=== PATIENT | male | born 1955 | race Caucasian/White ===

== ENCOUNTER 2017-08-25 07:32 | Inpatient (IN) | payer BC ==
[~2017-08-25 07:32] MED LIST: ACETAMINOPHEN 1,000 MG/100 ML BTL IV ONE; CEFAZOLIN 2 Gram 2 GM/50 ML BAG IVPB ONE; FAMOTIDINE 20MG TABLET PO ONE; MECLIZINE 25 MG TABLET PO ONE; METOCLOPRAMIDE 10 MG TABLET PO ONE
[2017-08-25] MEDS ORDERED: SENNOSIDES/DOCUSATE SODIUM UD CAPSULE PO PRN (11:45)
[2017-08-25] MEDS ORDERED: ONDANSETRON HCL IV 4 MG/2 ML VIAL IVP PRN (11:45)
[2017-08-25] MEDS ORDERED: HYDROMORPHONE HCL 1 MG/ML SYRINGE IM PRN (11:45)
[2017-08-25] MEDS ORDERED: TRAMADOL HCL 50 MG TABLET PO PRN ×2 (11:45)
[2017-08-25] MEDS ORDERED: OXYCODONE HCL 5 MG TABLET PO PRN (11:45)
[2017-08-25] MEDS ORDERED: AL HYDROX/MAG HYDROX 30ML UD PO PRN (11:45)
[2017-08-25] MEDS ORDERED: ZOLPIDEM TARTRATE 5 MG TABLET PO PRN (11:45)
[2017-08-25] MEDS ORDERED: METOCLOPRAMIDE HCL 10 MG/2 ML VIAL IVP PRN (11:45)
[2017-08-25] MEDS ORDERED: HYDROMORPHONE HCL 2 MG/ML VIAL IM PRN (11:45)
[2017-08-25] MEDS ORDERED: MAGNESIUM HYDROXIDE 30 ML UDC PO PRN (11:45)
[2017-08-25] MEDS ORDERED: DIPHENHYDRAMINE HCL 25 MG CAPSULE PO PRN (11:45)
[2017-08-25] MEDS ORDERED: HYDROMORPHONE HCL 1 MG/ML SYRINGE IVP PRN (11:45)
[2017-08-25] MEDS ORDERED: BUPIVACAINE LIPOSOME 266MG/20ML VIAL IV ONE (12:31)
[2017-08-25] MEDS ORDERED: TRANEXAMIC ACID 1,000 MG/10 ML ML IV ONE (12:31)
[2017-08-25] MEDS ORDERED: TRANEXAMIC ACID 1,000 MG in 0.9 % SODIUM CHLORIDE 100ML 100 ML IVPB ONE (13:00)
[2017-08-25] MEDS: RINGERS SOLUTION,LACTATED 1,000 ML IV SCH (13:23)
[2017-08-25] MEDS ORDERED: LIDOCAINE 2% MDV (20MG/ML) 20ML VIAL IV ONE (14:00)
[2017-08-25] MEDS ORDERED: DIPHENHYDRAMINE HCL IV 50 MG/ML VIAL IVP ONE (14:00)
[2017-08-25] MEDS ORDERED: MIDAZOLAM HCL 2MG/2ML VIAL IV ONE (14:00)
[2017-08-25] MEDS ORDERED: HYDROMORPHONE HCL 2 MG/ML VIAL IV ONE (14:00)
[2017-08-25] MEDS ORDERED: ONDANSETRON HCL IV 4 MG/2 ML VIAL IVP ONE (14:00)
[2017-08-25] MEDS ORDERED: FENTANYL PF 100MCG/2ML VIAL IV ONE (14:00)
[2017-08-25] MEDS ORDERED: PROPOFOL 10 MG/ML VIAL IV ONE (14:00)
--- NOTE | 2017-08-25 15:20 | Operative Note ---
DATE OF SURGERY: 08/25/2017 SURGEON: Mnia Hopson DO REFERRING PROVIDER: CORY Gutierrez PREOPERATIVE DIAGNOSIS: Primary osteoarthritis of the left knee. POSTOPERATIVE DIAGNOSIS: Primary osteoarthritis of the left knee. OPERATIVE PROCEDURE: Left total knee arthroplasty. DESCRIPTION: This 61-year-old male was taken to the operating room and placed in the supine position on the operating room table. A spinal anesthetic was administered by the Department of Anesthesia. Left lower extremity was then elevated, prepped with Hibiclens, and draped in the usual sterile fashion. It was exsanguinated, and the tourniquet inflated to 300 mmHg. All scrubbed personnel wore personal isolation suits. An anterior longitudinal and midline incision was made, followed by medial parapatellar arthrotomy incision. An intercondylar drill hole was made for the intramedullary alignment isela, and a 9 mm 6 degree valgus cut was made in the distal femur, and the wafers of bone were removed. Sizing jig was affixed, and a size 67 was seen to be the appropriate size. The 4-in-1 cutting block was then pinned in 3 degrees of external rotation, and the appropriate cuts were made, and wafers of bone were removed. We then directed our attention to the proximal tibia. An extramedullary alignment guide was used to cut the proximal tibia referencing a 10 mm cut off the lateral tibial plateau, and the appropriate cut was made. Once the cutting block had been stabilized in the appropriate position, a 3 degree posterior slope cut was made. Remnants of the menisci were removed. The patient did not really have any significant osteophytes posteriorly. The tibia was sized to a size 75. Stem punch was used. The trial reduction was accomplished, and an 11 mm bearing was seen to be the appropriate size. The knee was stable throughout the range of motion. The patella was cut and restored to anatomic height with a 34 x 7.8 mm patella, and that also was found to be stable. All trial components were then removed. Exparel was injected into the posterior medial and lateral corners of the joint, and the wound copiously irrigated, and all bony surfaces were dried. All components were cemented into place and excess cement removed after the insertion of each component. Initially, the tibial base plate was cemented, followed by the insertion of the tibial bearing, femoral component, and finally the patella. Once the cement had hardened, the knee was again taken through range of motion and found to be stable. The remainder of the Exparel was injected into the joint capsule and periosteum of the proximal tibia and distal femur. A drain was placed through a separate stab incision. The arthrotomy incision was closed with #2 Vicryl, the subcutaneous tissue closed with O Vicryl, the skin was stapled, and a polar care was applied. The patient was taken to the recovery room in satisfactory condition. GROSS PATHOLOGY: This patient demonstrated severe osteoarthritis. Tricompartmental disease was present. Full-thickness articular cartilage loss noted in both the posterior aspect of the medial and lateral femoral condyles with grade 2 and 3 changes noted in both the medial and lateral tibial plateaus. Final components inserted were a [employer] Vanguard size 67.5 cruciate-retaining femur, a 75 tibia base plate, 11 mm anterior stabilized E1 bearing, and a 34 x 7.8 mm patella was used. CC: CORY Gutierrez
[2017-08-25] MEDS: OXYCODONE HCL 5 MG TABLET PO PRN ×2 (16:10→22:10)
[2017-08-25] MEDS: ACETAMINOPHEN 1,000 MG/100 ML BTL IV SCH ×2 (17:27→23:01)
[2017-08-25] MEDS: FONDAPARINUX 2.5 MG/0.5 ML SYR SQ SCH (17:27)
[2017-08-25] MEDS: CEFAZOLIN 2 Gram 2 GM/50 ML BAG IVPB SCH (17:29)
--- NOTE | 2017-08-25 19:17 | Rehab Evaluation ---
Patient Information - Patient Information Diagnosis: OA L knee s/p L TKA Ordered Treatment: PT Evaluate and Treat Status: Initial Evaluation Surgery: Yes (L TKA) Date of Surgery: 08/25/17 History: Detail (Pt states both knees are bad, but L was worse. He anticipates having the right knee done next year.) Past Medical/Surgical Hx: PAST MEDICAL/SURGICAL HISTORY Past Surgical History cholecystectomy PMH - Respiratory Hx Respiratory Disorders Yes Hx Bronchitis Yes: 3 yrs ago Hx Pneumonia Yes Hx Sleep Apnea Yes Hx of CPAP Yes Hx of SOB Yes: with humidity Comment: had fever /chills last Tuesday-24 hrs duration PMH - Cardiovascular Hx Cardiovascular Disorders Yes Hx Edema Yes: slight in ankles-on HCTZ Hx Hypertension Yes Exercise Tolerance Good PMH - Neuro Hx Neurological Disorders Yes Hx Neuropathy Yes: sometimes in fingers Comment: has carpal tunnel syndrome PMH - GI Hx Gastrointestinal Disorders No PMH - Hx Genitourinary Disorders No PMH - Endocrine Hx Endocrine Disorders No PMH - Musculoskeletal Hx Musculoskeletal Disorders Yes Hx Arthritis Yes PMH - Psych Hx Psychiatric Problems No PMH - Hematology/Oncology Hx Hematology/Oncology No Disorders Premorbid Status: Detail (Pt works at [employer], 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 He was having progressively increasing pain and difficulty walking.) Social History: Detail (Pt lives in a single story home with his , with accessible bathroom and walk-in shower. He has three steps to enter his home with a single handrail. He is expecting to return to work in October.) Precautions: [place], Fall - Time With Patient Total Time Spent With Patient (Min): 45 Treatment Procedures: Detail (PT Evaluation) Subjective Information - Subjective Information Per Patient (Pt was reclined in bed upon arrival, awake, alert; visiting with company. He was cooperative for therapy and denied pain at rest, but quickly developed pain with moving L LE.) Objective Data - Pain Pain Present: Yes Pain Intensity: 4 Pain Scale Used: Numeric (1 - 10) - Mental Status Patient Orientation: Oriented x3 - Visual Perception Appears within normal limits for therapeutic activities - ROM Not within normal limits (CPM is set at 0-60 degrees and patient is tolerating it well. L hip and ankle are WNL as are R hip/knee/ankle.) - Strength/Tone Not within normal limits (3/5 strength in L hip and ankle, 3-/5 in L knee. R LE muscle groups are 5/5.) - Coordination Appears within normal limits for therapeutic activities - Bed Mobility Needs Assist (CGA for L LE in/out of bed and in/out of CPM and for scooting up in bed.) - Transfers Needs Assist (CGA for sit/stand transfer to 2 wheeled walker.) - Balance Balance Sitting: Good Balance Standing: Good (With 2 wheeled walker.) - Sensation Intact Therapy Assessment - Therapy Assessment Detail (Pt exhibits ROM, strength, and mobility impairments consistent with his post-surgical condition. He is a good candidate for physical therapy.) Patient Education - Patient Education Teaching Topic: Disease Process, Equipment Use, Exercise/Activity Response: Return Demonstration, Reinforcement Needed, Verbalize Understanding Teaching Method: Discussion, Demonstration Teaching Recipient: Patient Barriers To Learning: None Problem List - Problem List Physical Therapy Problem List: Detail (1. Requires assist for bed mobility and transfers. 2. Difficulty walking. 3. Impaired ROM and strength in L knee/LE.) Goals - Goals Physical Therapy Goals: 1. Pt will be independent w/bed mobility; 2. Pt will safely and independently perform sit/stand and stand/pivot transfers; 3. Pt will safely ambulate household distances and steps w/2 wheeled walker w/ supervision; 4. Pt will be independent with a basic home exercise program for ROM and muscle activation. Prognosis - Prognosis Good Plan - Plan Physical Therapy Plan: Pt will be seen twice tomorrow to advance bed mobility, transfers, and gait and to reinforce home exercise program.
[2017-08-26] MEDS: CEFAZOLIN 2 Gram 2 GM/50 ML BAG IVPB SCH ×2 (00:33→08:40)
[2017-08-26] MEDS: ACETAMINOPHEN 1,000 MG/100 ML BTL IV SCH (04:04)
[2017-08-26] MEDS: OXYCODONE HCL 5 MG TABLET PO PRN ×2 (04:22→10:14)
[2017-08-26] MEDS: RINGERS SOLUTION,LACTATED 1,000 ML IV SCH (04:30)
[2017-08-26] MEDS ORDERED: ENALAPRIL 10 MG PO SCH (10:00)
[2017-08-26] MEDS ORDERED: PATIENT OWN MED: ATENOLOL 100 MG PO SCH (10:00)
[2017-08-26] MEDS ORDERED: HCTZ PO SCH (10:00)
[2017-08-26] MEDS ORDERED: PATIENT OWN MED: POTASSIUM 20 MEQ PO SCH (10:00)
[2017-08-26] MEDS ORDERED: TRIAMTERENE PO SCH (10:00)
[2017-08-26] MEDS ORDERED: PATIENT OWN MED: AMLODIPINE 10 MG PO SCH (10:00)
--- NOTE | 2017-08-26 10:24 | Rehab Evaluation ---
Patient Information - Patient Information Diagnosis: OA L knee s/p L TKA Ordered Treatment: OT Evaluate and Treat Status: Initial Evaluation Surgery: Yes (L TKA) Date of Surgery: 08/25/17 History: Detail (Pt states both knees are bad, but L was worse. He anticipates having the right knee done next year.) Past Medical/Surgical Hx: PAST MEDICAL/SURGICAL HISTORY Past Surgical History cholecystectomy PMH - Respiratory Hx Respiratory Disorders Yes Hx Bronchitis Yes: 3 yrs ago Hx Pneumonia Yes Hx Sleep Apnea Yes Hx of CPAP Yes Hx of SOB Yes: with humidity Comment: had fever /chills last Tuesday-24 hrs duration PMH - Cardiovascular Hx Cardiovascular Disorders Yes Hx Edema Yes: slight in ankles-on HCTZ Hx Hypertension Yes Exercise Tolerance Good PMH - Neuro Hx Neurological Disorders Yes Hx Neuropathy Yes: sometimes in fingers Comment: has carpal tunnel syndrome PMH - GI Hx Gastrointestinal Disorders No PMH - Hx Genitourinary Disorders No PMH - Endocrine Hx Endocrine Disorders No PMH - Musculoskeletal Hx Musculoskeletal Disorders Yes Hx Arthritis Yes PMH - Psych Hx Psychiatric Problems No PMH - Hematology/Oncology Hx Hematology/Oncology No Disorders Premorbid Status: Detail (Pt works at [employer], 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 He was having progressively increasing pain and difficulty walking. Pt was independent with all ADLs [employer].) Social History: Detail (Pt lives in a single story home with his , with accessible bathroom and walk-in shower. He has three steps to enter his home with a single handrail. He is expecting to return to work in October. will be away during the day.) Precautions: [place], Fall - Time With Patient Total Time Spent With Patient (Min): 20 Treatment Procedures: Detail (OT eval LOW) Subjective Information - Subjective Information Per Patient (Pt wanting to go home as soon as possible as long as medical staff feels he is able to.) Objective Data - Pain Pain Present: Yes Pain Intensity: 8 (L knee) Pain Scale Used: Numeric (1 - 10) - Mental Status Patient Orientation: Oriented x3 - Visual Perception Appears within normal limits for therapeutic activities - ROM Within normal limits (BUE's) - Strength/Tone Within normal limits (BUE's) - Bed Mobility Needs Assist (CGA for L knee off bed) - Transfers Independent (sit<>stand t/f) - Balance Balance Sitting: Good - Sensation Intact - Gait Detail (Amb w/ 2WW from bed to BR for toileting independently) - ADL's/IADL's Detail (Pt was instructed on and demo'd understanding of modified drsg technique. Donned pants and t-shirt independently. Pt plans to wear slip on shoes at home. Discussed wrapping technique for L knee to prevent water saturation during showering. Pt plans to sponge bath for first several days. He does have a tub bench available.) Therapy Assessment - Therapy Assessment Detail (Pt safe and independent with UB and LB drsg.) Problem List - Problem List Physical Therapy Problem List: Detail (1. Requires assist for bed mobility and transfers. 2. Difficulty walking. 3. Impaired ROM and strength in L knee/LE.) Goals - Goals Physical Therapy Goals: 1. Pt will be independent w/bed mobility; 2. Pt will safely and independently perform sit/stand and stand/pivot transfers; 3. Pt will safely ambulate household distances and steps w/2 wheeled walker w/ supervision; 4. Pt will be independent with a basic home exercise program for ROM and muscle activation. Prognosis - Prognosis Good Plan - Plan Physical Therapy Plan: Pt will be seen twice tomorrow to advance bed mobility, transfers, and gait and to reinforce home exercise program. Occupational Therapy Plan: Pt safe and independent with UB and LB drsg. No further inpatient OT needed at this time.
[2017-08-26] MEDS ORDERED: HYDROCODONE/APAP 7.5/325MG TABLET PO PRN ×2 (11:45)
[2017-08-26] MEDS ORDERED: ACETAMINOPHEN 325 MG TAB PO PRN (11:45)
[2017-08-26] MEDS ORDERED: OXYCODONE/APAP 7.5MG/325MG TABLET PO PRN ×2 (11:45)
--- NOTE | 2017-08-26 14:05 | Physical Therapy Tx Note ---
Physical Therapy Tx Note - Treatment Note Tolerated: Good Total Time Spent With Patient: 45 Physical Therapy Tx Note: Detail (Pt in bed upon arrival, with nrsg, as he just had drain removed and IV stopped. Awake, alert, cooperative for therapy, eager to go home. CGA for moving L LE out of bed, used trapeze to sit at edge of bed. Sit/stand from bed to 2 wheeled walker w/SBA, ambulated from bedside to stairwell, down/up three stairs, and back to bedside (about 140 feet) w/SBA. VCs for technique for gait with walker and for stair technique. Preferred to hold onto handrail w/both hands rather than use folded walker on one side. Discussed use of cane on other side of handrail. Required CGA for L LE back into bed. Reviewed home exercise program and performed 10 reps each of ankle pumps, quadriceps, hamstring, and gluteal isometrics, heel slides. Provided outpatient PT schedule and discussed registration prior to first session. Added ice to polarpak and reapplied to L knee. Call light and bedside table in reach. Nrsg notified.) Physical Therapy Problem List: Detail (1. Requires assist for bed mobility and transfers. 2. Difficulty walking. 3. Impaired ROM and strength in L knee/LE.) Physical Therapy Goals: 1. Pt will be independent w/bed mobility: mostly met, needs CGA for L LE. 2. Pt will safely and independently perform sit/stand and stand/pivot transfers: met; 3. Pt will safely ambulate household distances and steps w/2 wheeled walker w/supervision: met; 4. Pt will be independent with a basic home exercise program for ROM and muscle activation: met. Prognosis: Good Physical Therapy Plan: Pt has met goals sufficiently to be discharged from PT; he will be seen in OPPT next week.
[2017-08-26] MEDS ORDERED: RINGERS SOLUTION,LACTATED 1,000 ML IV PRN (14:17)
--- NOTE | 2017-08-26 15:01 | Discharge Summary ---
DATE OF ADMISSION: 08/25/2017 DATE OF DISCHARGE: 08/26/2017 ADMITTING DIAGNOSIS: Osteoarthritis of left knee. DISCHARGE DIAGNOSIS: Osteoarthritis of left knee. OPERATIVE PROCEDURE: Elective left total knee arthroplasty. HOSPITAL COURSE: This 61-year-old male was admitted to the hospital for elective total knee arthroplasty and tolerated the operative procedure well. Drain was removed the first postoperative day. He tolerated physical therapy and was cleared for discharge. The patient was given routine home care instructions. He will wear his COLETTE hose during the day and remove them at night, take aspirin 325 mg daily. He was given a prescription for Devine 7.5/325, #60, to take 1 every 6 hours as necessary for pain. He will have outpatient physical therapy and follow up in the clinic in 2 weeks. Routine wound instructions were given. Should he have any problems prior to being seen, he was instructed to call my office. BIPIN
[2017-08-26] MEDS: FONDAPARINUX 2.5 MG/0.5 ML SYR SQ SCH (17:03)
== END 2017-08-26 17:13 | disposition home or self-care (01) | DRG 470 ==
LOC: MEDSURG 07:32
PROVIDERS: ADMIT Orthopaedic Surgery; ATTEND Orthopaedic Surgery
PROC: 0SRD069 Replacement of Left Knee Joint with Oxidized Zirconium on Polyethylene Synthetic Substitute, Cemented, Open Approach (ICD-10-PCS; principal; 2017-08-25 09:30)
DX: M17.12 Unilateral primary osteoarthritis, left knee (principal); I10 Essential (primary) hypertension
CPT/HCPCS: 36416; 82948; 97110; 97116; 97165; 97530; J1200; J2405; J7120

== ENCOUNTER 2018-06-27 06:01 | Day surgery (SDC) | payer BC ==
[~2018-06-27 06:01] MED LIST changes: -ACETAMINOPHEN 1,000 MG/100 ML BTL IV ONE; +CELECOXIB 100 MG CAPSULE PO ONE
[2018-06-27] MEDS ORDERED: PROPOFOL 10 MG/ML VIAL IV ONE (06:02)
[2018-06-27] MEDS ORDERED: BUPIVACAINE 0.25% W/EPI MPF 30ML VIAL IVP ONE (06:02)
[2018-06-27] MEDS ORDERED: LIDOCAINE 2% MDV (20MG/ML) 20ML VIAL IV ONE (06:02)
[2018-06-27] MEDS ORDERED: TRANEXAMIC ACID 1,000 MG/10 ML ML IV ONE (06:02)
[2018-06-27] MEDS ORDERED: BUPIVACAINE LIPOSOME 266MG/20ML VIAL IV ONE (06:02)
[2018-06-27] MEDS ORDERED: 0.9 % SODIUM CHLORIDE 100ML 100 ML IV ONE (06:02)
[2018-06-27] MEDS ORDERED: MIDAZOLAM HCL 2MG/2ML VIAL IV ONE (06:02)
[2018-06-27] MEDS ORDERED: HYDROMORPHONE HCL 2 MG/ML VIAL IV PRN (10:15)
[2018-06-27] MEDS ORDERED: AL HYDROX/MAG HYDROX 30ML UD PO PRN (10:15)
[2018-06-27] MEDS ORDERED: DIPHENHYDRAMINE HCL 25 MG CAPSULE PO PRN (10:15)
[2018-06-27] MEDS ORDERED: ZOLPIDEM TARTRATE 5 MG TABLET PO PRN (10:15)
[2018-06-27] MEDS ORDERED: MAGNESIUM HYDROXIDE 30 ML UDC PO PRN (10:15)
[2018-06-27] MEDS ORDERED: METOCLOPRAMIDE HCL 10 MG/2 ML VIAL IVP PRN (10:15)
[2018-06-27] MEDS ORDERED: ONDANSETRON HCL IV 4 MG/2 ML VIAL IVP PRN (10:15)
[2018-06-27] MEDS ORDERED: TRAMADOL HCL 50 MG TABLET PO PRN ×2 (10:15)
[2018-06-27] MEDS ORDERED: NALOXONE 0.4 MG/1 ML VIAL IVP PRN (10:15)
[2018-06-27] MEDS ORDERED: SENNOSIDES/DOCUSATE SODIUM UD CAPSULE PO PRN (10:15)
[2018-06-27] MEDS ORDERED: OXYCODONE HCL/APAP 5MG/325MG TABLET PO PRN ×2 (10:16)
[2018-06-27] MEDS ORDERED: HYDROCODONE/APAP 5/325MG TABLET PO PRN (10:16)
[2018-06-27] MEDS ORDERED: TRANEXAMIC ACID 1,000 MG in 0.9 % SODIUM CHLORIDE 100ML 100 ML IVPB ONE (11:00)
--- NOTE | 2018-06-27 13:55 | Rehab Evaluation ---
Patient Information - Patient Information Diagnosis: R knee OA Ordered Treatment: PT Evaluate and Treat Status: Initial Evaluation Surgery: Yes (R TKA) Date of Surgery: 06/27/18 Past Medical/Surgical Hx: PAST MEDICAL/SURGICAL HISTORY Past Surgical History LTKA 2--18 cholecystectomy PMH - Respiratory Hx Respiratory Disorders Yes Hx Bronchitis Yes: 3 yrs ago Hx Pneumonia Yes Hx Sleep Apnea Yes Hx of CPAP Yes Hx of SOB Yes: with humidity Comment: had fever /chills last Tuesday-24 hrs duration PMH - Cardiovascular Hx Cardiovascular Disorders Yes Hx Edema Yes: slight in ankles-on HCTZ Hx Hypertension Yes Exercise Tolerance Good PMH - Neuro Hx Neurological Disorders Yes Hx Neuropathy Yes: sometimes in fingers Comment: has carpal tunnel syndrome PMH - GI Hx Gastrointestinal Disorders No PMH - Hx Genitourinary Disorders No PMH - Endocrine Hx Endocrine Disorders No Hx Diabetes Yes: Dx'd less than 1 yr ago Hx of NIDDM Yes Comment: does not check blood sugar A1C 6 PMH - Musculoskeletal Hx Musculoskeletal Disorders Yes Hx Arthritis Yes PMH - Psych Hx Psychiatric Problems No PMH - Hematology/Oncology Hx Hematology/Oncology No Disorders Premorbid Status: Detail (The patient was independent with all mobility prior to surgery.) Social History: Detail (The patient lives with spouse in a one story house with four steps at the enterance and 2 handrails. The bathroom is equipped with a walk in shower, grab bars and a shower bench, standard toilet seat with riser seat. The patient has a standard walker.) Precautions: [place], Fall, Other (WBAT on the R LE.) - Time With Patient Total Time Spent With Patient (Min): 30 Treatment Procedures: Detail (Initial Evaluation, gait training) Subjective Information - Subjective Information Per Patient (The patient has some complaints of R knee pain but did not rate it using 0-10 pain scale.) Objective Data - Mental Status Patient Orientation: Oriented x3 - Visual Perception Appears within normal limits for therapeutic activities - ROM Not within normal limits (The patient's R knee AROM is limited as to be expected s/p surgery. All other AROM is WNL.) - Strength/Tone Not within normal limits (The patient's R LE strength was not tested secondary to s/p surgery however was functional. The patient was able to complete a SLR. The patient's L LE strength was WFL.) - Bed Mobility Independent (The patient was independent with supine to and from sit transfer.) - Transfers Independent (The patient was independent with sit to and from stand transfer.) - Balance Balance Sitting: Good Balance Standing: Good - Gait Detail (The patient ambulated on front wheeled walker WBAT on the R LE 40 feet x 1 with supervision for safety.) Therapy Assessment - Therapy Assessment Detail (The patient was independent with bed mobility, transfer and required supervison for safety only with ambulation. Feel the patient will progress well with mobility.) Problem List - Problem List Physical Therapy Problem List: Detail (1) Decreased R knee AROM and R LE strength 2) Non ambulatory on stairs.) Goals - Goals Physical Therapy Goals: 1) The patient will be independent with a HEP of R TKA exercises. 2) The patient will ambulate on steps with supervison for safety using proper technique. Prognosis - Prognosis Good Plan - Plan Physical Therapy Plan: PT for 1-2 sessions for gait training on stairs and instruction in HEP.
[2018-06-27] MEDS: HYDROCODONE/APAP 5/325MG TABLET PO PRN ×2 (14:44→18:24)
[2018-06-27] MEDS: CEFAZOLIN 2 Gram 2 GM/50 ML BAG IVPB SCH ×2 (14:46→22:42)
[2018-06-27] MEDS: ASPIRIN 325 MG TAB ENTERIC-COATED PO SCH (21:22)
[2018-06-27] MEDS: RINGERS SOLUTION,LACTATED 1,000 ML IV SCH (22:41)
[2018-06-28] MEDS: RINGERS SOLUTION,LACTATED 1,000 ML IV SCH (06:33)
[2018-06-28] MEDS: CEFAZOLIN 2 Gram 2 GM/50 ML BAG IVPB SCH (06:33)
[2018-06-28] MEDS: ASPIRIN 325 MG TAB ENTERIC-COATED PO SCH (09:21)
[2018-06-28] MEDS ORDERED: TRIAMTERENE PO SCH (10:00)
[2018-06-28] MEDS ORDERED: PATIENT OWN MED: ENALAPRIL 20 MG PO SCH (10:00)
[2018-06-28] MEDS ORDERED: PATIENT OWN MED: POTASSIUM 20 MEQ PO SCH (10:00)
[2018-06-28] MEDS ORDERED: PATIENT OWN MED: ATENOLOL 100 MG PO SCH (10:00)
[2018-06-28] MEDS ORDERED: HCTZ PO SCH (10:00)
[2018-06-28] MEDS ORDERED: PATIENT OWN MED: AMLODIPINE 10 MG PO SCH (10:00)
[2018-06-28] MEDS ORDERED: PATIENT OWN MED: METFORMIN ER 500 MG PO SCH (10:00)
[2018-06-28] MEDS ORDERED: CELECOXIB 100 MG CAPSULE PO SCH (10:00)
[2018-06-28] MEDS ORDERED: ACETAMINOPHEN 325 MG TAB PO PRN (10:15)
--- NOTE | 2018-06-28 10:59 | Rehab Evaluation ---
Patient Information - Patient Information Diagnosis: R knee OA Ordered Treatment: OT Evaluate and Treat Status: Initial Evaluation Surgery: Yes (R TKA) Date of Surgery: 06/27/18 Past Medical/Surgical Hx: PAST MEDICAL/SURGICAL HISTORY Past Surgical History LTKA 2--18 cholecystectomy PMH - Respiratory Hx Respiratory Disorders Yes Hx Bronchitis Yes: 3 yrs ago Hx Pneumonia Yes Hx Sleep Apnea Yes Hx of CPAP Yes Hx of SOB Yes: with humidity Comment: had fever /chills last Tuesday-24 hrs duration PMH - Cardiovascular Hx Cardiovascular Disorders Yes Hx Edema Yes: slight in ankles-on HCTZ Hx Hypertension Yes Exercise Tolerance Good PMH - Neuro Hx Neurological Disorders Yes Hx Neuropathy Yes: sometimes in fingers Comment: has carpal tunnel syndrome PMH - GI Hx Gastrointestinal Disorders No PMH - Hx Genitourinary Disorders No PMH - Endocrine Hx Endocrine Disorders No Hx Diabetes Yes: Dx'd less than 1 yr ago Hx of NIDDM Yes Comment: does not check blood sugar A1C 6 PMH - Musculoskeletal Hx Musculoskeletal Disorders Yes Hx Arthritis Yes PMH - Psych Hx Psychiatric Problems No PMH - Hematology/Oncology Hx Hematology/Oncology No Disorders Premorbid Status: Detail (The patient was independent with all mobility, laundry and meal prep tasks prior to surgery. His spouse is responsible for home mgmt tasks.) Social History: Detail (The patient lives with spouse in a one story house with four steps at the entrance and 2 handrails. The bathroom is equipped with a walk in shower, grab bars and a shower bench, standard toilet seat with riser seat. The patient has a standard walker.) Precautions: [place], Fall, Other (WBAT on the R LE.) - Time With Patient Total Time Spent With Patient (Min): 35 Treatment Procedures: Detail (OT eval low complexity) Subjective Information - Subjective Information Per Patient Objective Data - Pain Pain Present: Yes (10/01) - Mental Status Patient Orientation: Oriented x3 - Visual Perception Appears within normal limits for therapeutic activities - ROM Within normal limits (Jose J UE AROM WNL) - Strength/Tone Within normal limits (Jose J UE strength WNL) - Coordination Appears within normal limits for therapeutic activities - Bed Mobility Independent (Ind with supine to sit using bed rail and trapeze.) - Transfers Independent (Ind with sit to stand from EOB and chair heights.) - Balance Balance Sitting: Good Balance Standing: Good - Sensation Intact - Gait Detail (Pt ambulating in room with walker.) - ADL's/IADL's Detail (Pt educated and able to demonstrate learning of modified LE dressing techniques including doffing slipper socks and donning underwear, sweatpants and tennis shoes. He required assist to tie shoes and reports his will be available to help with this. Reviewed donning of juni hose, kitchen and shower safety and modifications, pt able to verbalize understanding.) Therapy Assessment - Therapy Assessment Detail (Pt is Ind with modified LE dressing techniques.) Problem List - Problem List Physical Therapy Problem List: Detail (1) Decreased R knee AROM and R LE strength 2) Non ambulatory on stairs.) Occupational Therapy Problem List: Detail (No current IP OT problems identified. ) Goals - Goals Physical Therapy Goals: 1) The patient will be independent with a HEP of R TKA exercises. 2) The patient will ambulate on steps with supervison for safety using proper technique. Occupational Therapy Goals: No current IP OT goals identified. Prognosis - Prognosis Good Plan - Plan Physical Therapy Plan: PT for 1-2 sessions for gait training on stairs and instruction in HEP. Occupational Therapy Plan: No further IP OT recommended. Thank you for this referral.
--- NOTE | 2018-06-28 11:04 | Physical Therapy Tx Note ---
Physical Therapy Tx Note - Treatment Note Tolerated: Good Total Time Spent With Patient: 25 Physical Therapy Tx Note: Detail (The patient was up in chair when PT arrived. The patient ambulated with front wheeled walker a distance of 54 feet x1 WBAT on the R LE independently. The patient ambulated on stairs with use of one railing with CG, supervision for safety. The paitent completed TKA exercises included seated heelslides, gluteal sets, hamstring sets, quad sets,ankle pumps and assisted SLR. The patient has met all inpatient PT goals and is discharged from inpatient PT.) Physical Therapy Problem List: Detail (1) Decreased R knee AROM and R LE strength 2) Non ambulatory on stairs.) Physical Therapy Goals: 1) The patient will be independent with a HEP of R TKA exercises. (Goal met). 2) The patient will ambulate on steps with supervison for safety using proper technique. (Goal met) Physical Therapy Plan: The patient is discharged from inpatient PT and is to continue with PT as an outpatient.
--- NOTE | 2018-06-28 11:20 | Operative Note ---
DATE OF SURGERY: 06/27/2018 Surgeon: Mina Hopson DO PREOPERATIVE DIAGNOSIS: Primary osteoarthritis of the right knee. POSTOPERATIVE DIAGNOSIS: Primary osteoarthritis of the right knee. OPERATION: Right total knee arthroplasty. DESCRIPTION OF PROCEDURE: This 62-year-old male was taken to the operating room and placed in the supine position on the operating room table. Spinal anesthesia was induced by the department of anesthesia. The right lower extremity was elevated. It was prepped with Hibiclens and draped in the usual sterile fashion. It was exsanguinated and the tourniquet inflated to 300 mmHg. All scrub personnel wore personal isolation suits. An anterior longitudinal midline incision was made followed by a medial parapatellar arthrotomy incision. An intracondylar drill hole was made for the intramedullary alignment isela, and a 6-degree valgus 9 mm cut was made in the distal femur. Subsequently the sizing jig was affixed and a size 67.5 was seen to be the appropriate size in the anterior-posterior dimension. The 4-in-1 cutting block was then pinned in 3 degrees of external rotation. The appropriate cuts were made and the wafer of bone was removed. We then directed our attention to the proximal tibia, and an extramedullary alignment guide was used to cut the proximal tibia referencing a 10 mm cut off the lateral tibial plateau. After appropriate alignment, a 3-degree posterior slope cut was made and the wafer of bone was removed. Remnants of the menisci and osteophytes were removed from the posterior aspect of the joint. The tibia was then sized to a 75 and the stem punch was used. The wound was copiously irrigated with pulse lavage, lactated Ringer's solution removing all debris from the joint. The patella was then measured and cut and restored to anatomic height with a 34 x 8.5 mm patella. The trial components were inserted and a 10 mm bearing was seen to be the appropriate size giving us stability in full extension and throughout the entire range of motion. All trial components were then removed, and the wound copiously irrigated with pulse lavage lactated Ringer's solution. Exparel was injected in the posterior, medial, and lateral corners of the joint and after insertion of the final components, the remainder was injected into the periosteum and joint capsule of the proximal tibia and distal femur. All bony surfaces were dried and all component were cemented and excess cement removed after the insertion of each component. Initially the tibial baseplate was cemented followed by the insertion of the tibial bearing, femoral component, and finally the patella. Once the cement had hardened, the knee was again taken through range of motion and found to be stable. A drain was placed through a separate stab incision, and the arthrotomy incision was closed with a #2 Vicryl. The subcutaneous tissue was closed with 0 Vicryl and the skin was stapled. Sterile dressings applied with a Polar Care. The patient was taken to the recovery room in satisfactory condition. 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 Final components inserted were a [employer] size 67.5 cruciate retaining femur, a 75 tibial baseplate, a 10 mm anterior stabilized E1 bearing, and a 34 x 8.5 mm patella was used. CC: CORY Gutierrez
[2018-06-28] MEDS: HYDROCODONE/APAP 5/325MG TABLET PO PRN (12:32)
--- NOTE | 2018-06-29 09:00 | Discharge Summary ---
DATE OF ADMISSION: 06/27/2018 DATE OF DISCHARGE: 06/28/2018 ADMITTING DIAGNOSIS: Osteoarthritis of the right knee. DISCHARGE DIAGNOSIS: Osteoarthritis of the right knee. OPERATIVE PROCEDURE: Right total knee arthroplasty. DESCRIPTION: This 62-year-old male was admitted to the hospital for total knee arthroplasty and tolerated the operative procedure well. He was cleared by Physical Therapy and was ready for discharge. He has not complained of calf pain, shortness of breath, or chest pain. The patient will be discharged with outpatient physical therapy. He was instructed to wear his COLETTE hose during the day and remove them at night. He was given prescription for [place] 5/325 mg, #40, 1 every 4 hours as necessary for pain. He will take aspirin 325 mg daily for 2 weeks. Routine wound care instructions were given. He will follow up in the clinic in 2 weeks for staple removal. Should he have any problems prior to being seen, he was instructed to call my office. BIPIN
== END 2018-06-28 13:25 | disposition home or self-care (01) ==
LOC: SUR 06:01 → MEDSURG 10:05 → SUR 06-28 13:25
PROVIDERS: ATTEND Orthopaedic Surgery
DX: M16.11 Unilateral primary osteoarthritis, right hip (principal); I10 Essential (primary) hypertension; E11.9 Type 2 diabetes mellitus without complications; G47.33 Obstructive sleep apnea (adult) (pediatric); R60.9 Edema, unspecified; E66.01 Morbid (severe) obesity due to excess calories
CPT/HCPCS: 27447; 01402; 64447; 94760; J1170; J0690 ×2; C9290; J3490; G8978; G8979; G8987; G8988; G8989; 76942; J7120